=== PATIENT | female | born 1995 | race Two or more races ===

== ENCOUNTER 2022-11-05 15:21 | Emergency (ER) | payer SELFPAY ==
[~2022-11-05] VITALS: Ht 162.6 cm; Wt 76.0 kg
[2022-11-05 15:54] LABS: Basophils # (auto) 0 10 ^3/uL (0-0.2); Basophils % (auto) 0.2 % (0.0-2.0); Eosinophils # (auto) 0.1 10 ^3/uL (0-0.8); Eosinophils % (auto) 0.7 % (0.0-7.0); Hematocrit 39.5 % (36.0-46.0); Lymphocytes # (auto) 1.5 10 ^3/uL (0.4-5.4); Lymphocytes % (auto) 14.9 % (10.0-50.0); Mean Corpuscular Volume 84.9 fL (80.0-100.0); Monocytes # (auto) 0.7 10 ^3/uL (0-1.3); Monocytes % (auto) 6.7 % (0.0-12.0); Neutrophils % (auto) 77.5 % (37.0-80.0); Nucleated Red Blood Cells % 0.1 %; Red Blood Cells 4.65 10^6/uL (4.0-5.20); Red Cell Distribution Width 13.7 % (11.8-14.3); White Blood Cell 10.3 10^3/uL (4.4-10.8)
[2022-11-05 16:14] LABS: Albumin 4.1 g/dL (3.4-5.0); BUN/Creatinine Ratio 17.6 (10.0-20.0); Calcium 9.4 mg/dL (8.5-10.1); Potassium 3.9 mmol/L (3.5-5.1)
[2022-11-05 16:17] LABS: Bilirubin, Total 0.3 mg/dL (0.2-1.0)
[2022-11-05] MEDS ORDERED: OXYCODONE W/ ACETAMINOPHEN 5/325MG TABLET PO ONE (22:30)
[2022-11-05 23:01] VITALS: BP 114/77
== END 2022-11-05 23:08 | disposition home or self-care (01) ==
LOC: ER 15:21
DX: R07.89 Other chest pain (principal)
CPT/HCPCS: 36415; 71250; 73120; 73630; 80053; 84484; 85025; 85379; 93005